=== PATIENT | female | born 1970 | race Caucasian/White ===

== ENCOUNTER 2016-09-14 19:43 | Emergency (ER) | payer OTHER ==
[~2016-09-14] VITALS: Ht 157.5 cm; Wt 90.9 kg
[~2016-09-14 19:43] MED LIST: ALBU8.5H4 IH; ATOR20TA PO; Aspirin PO; CARV3.12 PO; CEFU250T2 PO; CLOP75TA3 PO; FLUT12AE10 INHALATION; LISI-609 PO; Nystatin PO; TIOT18CA3 INHALATION
[2016-09-14 19:49] VITALS: BP 171/106; PULSE 112; RESP 18; O2SAT 98
[2016-09-14 20:11] VITALS: BP 131/71; PULSE 101; RESP 22; O2SAT 97
[2016-09-14 20:15] LABS: BASOPHILS % (AUTO) 0.6 % (0-3); Mean Corpuscular Hemoglobin 25.7 pg (27.0-35.0); Mean Corpuscular Volume 86.1 fL (81-100); NEUTROPHILS % (AUTO) 67.1 % (40-74); Platelet Count 323 bil/L (150-400)
--- NOTE | 2016-09-14 20:19 | DRSVH ---
PROCEDURE: X-RAY CHEST ONE VIEW, PORTABLE ([id number]) INDICATIONS: CHEST PAIN TECHNIQUE: One view of the chest was acquired. COMPARISON: [facility], , CHEST 1VW (PORTABLE), 02/24/2014, 10:38. [facility], , CHEST 2VW, 02/25/2014, 7:47. FINDINGS: Surgical changes and devices: None. Lungs and pleura: No pleural effusions or pneumothorax. Lungs are clear. Mediastinum: Mediastinal contours appear normal. Heart size is enlarged. Bones and chest wall: No suspicious bony lesions. Overlying soft tissues appear unremarkable. IMPRESSION: 1. Cardiomegaly redemonstrated. 2. No definite acute cardiopulmonary disease. Dictated by: Kiel Bautista M.D. on 09/14/2016 at 20:16 Approved by: Kiel Bautista M.D. on 09/14/2016 at 20:17
--- NOTE | 2016-09-14 20:27 | ED.REPORT ---
HPI-Chest Pain 40 and Over Date of Service Sep 14, 2016 ED Provider: Matt Lea DO 46 y/o female with a hx of CAD s/p stenting, HTN and COPD presents to the ED complaining of intermittent chest pain, onset last week. Pt reports that it radiates to under her arms and feels similar to "when you hold your breath and there's pressure above your neck". However, it is different from her sx of [place] in 2012. Associated sx include SOB, onset a couple of weeks and lower extremity swelling. Pt reports increased SOB and CP with walking. Pt denies fever, cough and diaphoresis. Pt has multiple prescription medications that she has not been taking due to cost. Nursing Notes Stated Complaint: HEART,TROUBLE BREATHING,HAS A STENT Chief Complaint: Chest Pain Nursing Notes Reviewed: Yes Allergies: Coded Allergies: No Known Allergies (Unverified Allergy, Unknown, 09/14/16) Scheduled ([Aspirin]) 81 MG TAB.CHEW 81 MG PO DAILY Aspirin Chew (Aspirin Chew) 81 Mg Chew 81 MG PO DAILY Atorvastatin (Lipitor) 20 Mg Tablet 40 MG PO HS Atorvastatin (Lipitor) 40 Mg Tablet 40 MG PO DAILY Carvedilol (Coreg) 3.125 Mg Tablet 3.125 MG PO BID Carvedilol (Coreg) 3.125 Mg Tablet 3.125 MG PO BID Clopidogrel Bisulfate (Plavix) 75 Mg Tablet 75 MG PO DAILY Clopidogrel Bisulfate (Plavix) 75 Mg Tablet 75 MG PO DAILY Fluticasone Propionate (Flovent HFA 220 mcg) 1 Puff Inha 2 PUFF INHALATION BID Lisinopril (Zestril) 5 Mg Tablet 5 MG PO HS Lisinopril (Lisinopril) 10 Mg Tablet 10 MG PO DAILY Tiotropium [place] (Spiriva) 1 Puff Inh.cap 1 PUFF INHALATION DAILY Scheduled PRN Albuterol HFA (Albuterol HFA) 8.5 Gm Hfa.aer.ad 1 PUFF IH Q4 PRN PRN For Wheezing General Time Seen by MD: 20:04 Chief Complaint Chest pain Sudden in Onset?: No Past Medical History Past Medical History CAD, [place] (2012), HTN, COPD Past Surgical History Stent placement Smoking History Current Every Day Smoker Ambulatory Status Independent Review of Systems Constitutional: Denies: Fever Respiratory: Reports: Shortness of breath, Denies: Non-productive cough Cardiovascular: Reports: Chest pain, Edema Skin: Denies Diaphoresis Complete sys rev & neg: except as marked. Physical Exam Initial Vital Signs Vital Signs (First) Date Time Temp Pulse Resp B/P Pulse Ox O2 Delivery O2 Flow Rate FiO2 09/14/16 19:49 37.0 112 18 171/106 98 Room Air Initial VS: Reviewed, Vital signs normal Head / Eyes: Atraumatic, Normocephalic, PERRL ENT: Mucous membranes moist, Conjunctiva normal, No scleral icterus Neck: Supple, Full range of motion Skin: Warm, Dry, No cyanosis Neurologic: Alert, Oriented, Nonfocal Psychiatric: Mood/affect normal, Behavior normal, Normal thought content General/Constitutional: Awake, Alert, No acute distress, Cooperative, Not toxic appearing Respiratory / Chest: Atraumatic, Breath sounds NL, Breath sounds = bilat, No respiratory distress, No rales, No rhonchi, No wheezing Cardiovascular: Heart rate NL, Regular rhythm, Heart sounds NL, No gallop, No murmurs, No rubs Abdomen: Atraumatic, Non-tender Lower Extremity / Pelvis / MS: Atraumatic, Full range of motion Lower extremity edema Upper Extremity / MS: Atraumatic, Full range of motion, No swelling Interpretation & Diagnostics Lab Results Interpretation Result Diagram: 09/14/16 2004 09/14/16 2004 Test 09/14/16 20:04 09/14/16 20:10 White Blood Count 8.1th/mm3 (3.8-10.1) Red Blood Count 4.04mil/mm3 (3.90-5.20) Hemoglobin 10.4g/dL (12.0-15.6) Hematocrit 34.8% (35.0-46.0) Mean Corpuscular Volume 86.1fL (81-100) Mean Corpuscular Hemoglobin 25.7pg (27.0-35.0) Mean Corpuscular Hemoglobin Concent 29.9% (32.0-37.0) Red Cell Distribution Width 15.7% (12.3-15.4) Platelet Count 323bil/L (150-400) Neutrophils (%) (Auto) 67.1% (40-74) Lymphocytes (%) (Auto) 19.1% (14-46) Monocytes (%) (Auto) 6.0% (4-12) Eosinophils (%) (Auto) 7.0% (0-5) Basophils (%) (Auto) 0.6% (0-3) D-Dimer 0.65mg/L FEU (<0.50) Sodium Level 141mEq/L (134-144) Potassium Level 4.9mEq/L (3.5-5.2) Chloride Level 104mEq/L (97-108) Carbon Dioxide Level 25mmol/L (18-29) Blood Urea Nitrogen 11mg/dL (6-24) Creatinine 0.95mg/dL (0.57-1.00) Estimat Glomerular Filtration Rate 91mL/min (>59) Glucose Level 129mg/dL (60-99) Calcium Level 9.6mg/dL (8.5-10.1) Magnesium Level 2.1mg/dL (1.6-2.6) Total Bilirubin 0.6mg/dL (0.0-1.2) Aspartate Amino Transf (AST/SGOT) 25U/L (0-50) Alanine Aminotransferase (ALT/SGPT) 20U/L (0-32) Alkaline Phosphatase 90U/L (25-150) Troponin T < 0.010ug/L (0.0-0.011) Pro-B-Type Natriuretic Peptide 1863pg/mL (0-249) Total Protein 6.5g/dL (6.4-8.4) Albumin 3.9g/dL (3.4-5.0) Hold [place] Top Tube Received (Received) Hold Urine Received (Received) General Lab Results Interp 1: Labs reviewed ECG Interpretation ECG Interpretation: SINUS TACHYCARDIA NON SPECIFIC ST CHANGES. Rate 100. Time: 20:09 Interpreted by: ED physician X-Ray Chest Interpretation Chest Xray Interpretation: IMPRESSION: 1. Cardiomegaly redemonstrated. 2. No definite acute cardiopulmonary disease. Dictated by: Kiel Bautista M.D. on 09/14/2016 at 20:16 Approved by: Kiel Bautista M.D. on 09/14/2016 at 20:17 View: Portable, 1 view Interpretation / Wet Read by: Interpret - Radiologist CT Chest Interpretation IMPRESSION: 1. No evidence of pulmonary embolism. 2. Cardiomegaly with a small pericardial effusion. 3. Moderate-sized hiatal hernia. 4. Heterogeneous groundglass opacities with mild septal thickening primarily in the lung bases suggestive of mild pulmonary edema. Dictated by: Kiel Bautista M.D. on 09/14/2016 at 21:50 Approved by: Kiel Bautista M.D. on 09/14/2016 at 21:56 ADDENDUM: Mildly enlarged mediastinal lymph nodes are nonspecific and may be reactive. However, the differential includes metastatic disease. Recommend correlation clinically and followup to demonstrate stability in 3-6 months if clinically indicated. Dictated by: Kiel Bautista M.D. on 09/14/2016 at 22:12 Approved by: Kiel Bautsita M.D. on 09/14/2016 at 22:13 Study type: CT pulm angiogram Interpretation / Wet Read by: Interpret - Radiologist Re-Eval/Medical Decision Med Decision/Clinical Course Does not seem to be acute coronary syndrome, may be mild congestive heart failure, her vital signs are okay, she has some tachycardia which has resolved after resuming her beta mary, her blood pressure is still mildly elevated, she is not hypoxic. She is ambulatory with a brisk gait without symptoms. She would prefer to go home after our discussion. I strongly encouraged her to resume her previously prescribed medications. A one-month supply of each has been given. Additionally she is encouraged to call cardiology for seeing in the morning as well as a primary care doctor for close outpatient follow-up. Discussed that she will need echocardiogram and further evaluation with cardiology. Return and follow-up precautions given. Source of Hx: Old records Time of Eval: 22:21 Re-Evaluation/Progress Note: Updated pt of labs, ECG and imaging results. Discussed plan for discharge and follow up. Informed her that she needs to take her medications as directed. All questions addressed. Counseled Regarding: Diagnosis, Lab results, Need for follow-up, When/why to return to ED Discharge & Departure Primary Impression: CHF (congestive heart failure) Congestive heart failure type: unspecified congestive heart failure type Congestive heart failure chronicity: unspecified congestive heart failure chronicity Qualified Code: I50.9 - Heart failure, unspecified Disposition: Home Discharge Condition All VS Reviewed: Yes Condition: Improved Patient Instructions: Congestive Heart Failure (ED) Additional Instructions: Call cardiology first thing tomorrow morning for urgent follow up. Start taking Lasix as directed for CHF. Resume your other prescribed medications. You should also schedule a follow up with a primary care provider. Return to the ER for severe pain, shortness of breath or any other new or concerning symptoms. Referrals: Jori Vazquez DO (PCP) Torie Pate MD [facility] Scribe Attestation Portions of this note were transcribed by Jud Park and Cheryl Whitaker I, (Dr. Shonna Barnes) personally performed the history, physical exam and medical decision- making; I reviewed and confirmed the accuracy of the information in the transcribed note. Signed by: Jud Park. Grant, 09/14/2016, 7483 copies to: Jori Vazquez DO; Torie Pate MD; [facility] Matt Lea DO Sep 14, 2016 20:27 Cheryl Zuñiga Sep 14, 2016 20:28 Jud Park Sep 14, 2016 22:30
[2016-09-14] MEDS ORDERED: Furosemide 10 mg/mL 2 mL Inj IVPUSH ONE (20:30)
[2016-09-14 20:47] LABS: Magnesium 2.1 mg/dL (1.6-2.6)
[2016-09-14 20:51] LABS: TROPONIN T < 0.010 ug/L (0.0-0.011)
[2016-09-14] MEDS ORDERED: Furosemide 10 mg/mL 4 mL Inj IVPUSH ONE (21:20)
[2016-09-14 21:31] VITALS: BP 134/84; PULSE 102; RESP 16; O2SAT 96
--- NOTE | 2016-09-14 21:58 | DRSVH ---
PROCEDURE: CT ANGIO CHEST PULMONARY EMBOLISM ([id number]) INDICATIONS: dyspnea, elevated ddimer TECHNIQUE: After the administration of intravenous contrast, 2 mm thick sections acquired from the pulmonary api beth to the posterior costophrenic angles. 3-dimensional maximum intensity projection (MIP) coronal a nd sagittal reformats were then acquired through the thorax. For radiation dose reduction, the follo wing was used: automated exposure control, adjustment of mA and/or kV according to patient size. COMPARISON: [facility], CR, XR CHEST 1VW (PORTABLE), 09/14/2016, 19:51. FINDINGS: Image quality: Excellent. Pulmonary arteries: Pulmonary arteries are normal in size, and demonstrate no intraluminal filling d efects to suggest central pulmonary embolism. Lungs and pleura: There are heterogeneous groundglass opacities and mild septal thickening in the sundeep ngs with a basilar predominance suggesting mild pulmonary edema. No acute consolidation. No pleural effusions or pneumothorax. Central and peripheral airways are patent. Mediastinum: Heart size is mildly enlarged. There is a small pericardial effusion. Thoracic aorta is normal in caliber and enhancement. There multiple mildly enlarged mediastinal lymph nodes includi ng a off premise service representative azygoesophageal of blood measuring up to 1.3 cm. There are also right paratrache al lymph nodes noted measuring up to approximately 1 cm. Esophagus is normal in caliber, with a mode rate-sized hiatal hernia. Bones and chest wall: No suspicious bony lesions. Ribs and thoracic spine appear intact throughout. Thyroid gland demonstrates a small indistinct left-sided nodule.. No axillary or supraclavicular a denopathy. Abdomen: Visualized upper abdominal solid organs appear normal in the early arterial phase of enhanc ement. IMPRESSION: 1. No evidence of pulmonary embolism. 2. Cardiomegaly with a small pericardial effusion. 3. Moderate-sized hiatal hernia. 4. Heterogeneous groundglass opacities with mild septal thickening primarily in the lung bases sugge stive of mild pulmonary edema. Dictated by: Kiel Bautista M.D. on 09/14/2016 at 21:50 Approved by: Kiel Bautista M.D. on 09/14/2016 at 21:56
[2016-09-14 22:01] VITALS: BP 162/95; PULSE 100; RESP 15; O2SAT 99
[2016-09-14] MEDS ORDERED: CARV3.12 PO (22:33)
[2016-09-14] MEDS ORDERED: LISI10TA PO (22:33)
[2016-09-14] MEDS ORDERED: LIP40 PO (22:33)
[2016-09-14] MEDS ORDERED: CLOP75TA3 PO (22:33)
[2016-09-14] MEDS ORDERED: ASPI81TA3 PO (22:33)
[2016-09-14 22:37] VITALS: BP 162/96; PULSE 95; RESP 20; O2SAT 96
== END 2016-09-14 22:38 | disposition home or self-care (01) ==
LOC: SED 19:43
DX: I11.0 Hypertensive heart disease with heart failure (principal); I25.10 Atherosclerotic heart disease of native coronary artery without angina pectoris; J44.9 Chronic obstructive pulmonary disease, unspecified; Z79.82 Long term (current) use of aspirin; F17.200 Nicotine dependence, unspecified, uncomplicated; Z95.5 Presence of coronary angioplasty implant and graft
CPT/HCPCS: 36415; 71010; 71275; 80053; 83735; 83880; 84484; 85025; 85378; 93005; 96374; 99285; J1940; Q9967

== ENCOUNTER 2017-02-11 16:54 | Inpatient (IN) | payer OTHER ==
[~2017-02-11] VITALS: Ht 157.5 cm; Wt 83.1 kg
[2017-02-11] VITALS (7 sets, daily range): BP systolic 133–168; BP diastolic 72–121; PULSE 85–106; RESP 18–24; O2SAT 95–97
[~2017-02-11 16:54] MED LIST changes: +ASPI81TA3 PO; -CEFU250T2 PO; +LIP40 PO; +LISI10TA PO; -Nystatin PO
--- NOTE | 2017-02-11 17:34 | DRSVH ---
PROCEDURE: X-RAY CHEST, TWO VIEWS ([id number]) INDICATIONS: shortness of breath TECHNIQUE: 2 views of the chest were acquired. COMPARISON: [facility], CR, CHEST 2VW, 02/25/2014, 7:47. [facility], CR, XR CHEST 1VW (PORTABLE), 09/14/2016, 19:51. FINDINGS: Surgical changes and devices: None. Lungs and pleura: No pleural effusions or pneumothorax. Lungs are clear. Mediastinum: Mediastinal contours are normal. Heart size is enlarged, but stable compared to prior examination. Bones and chest wall: No suspicious bony abnormalities. Soft tissues appear unremarkable. IMPRESSION: No acute cardiopulmonary disease process. Cardiomegaly. Dictated by: Vale Lambert MD, PhD on 02/11/2017 at 17:32 Approved by: Vale Lambert MD, PhD on 02/11/2017 at 17:32
[2017-02-11 17:53] LABS: BASOPHILS % (AUTO) 0.7 % (0-3); EOSINOPHILS % (AUTO) 5.6 % (0-5); MONOCYTES % (AUTO) 5.1 % (4-12); Mean Corpuscular Hemoglobin 27.1 pg (27.0-35.0); Mean Corpuscular Volume 85.5 fL (81-100); NEUTROPHILS % (AUTO) 68.4 % (40-74); Platelet Count 290 bil/L (150-400)
[2017-02-11 18:22] LABS: TROPONIN T < 0.010 ug/L (0.0-0.011)
--- NOTE | 2017-02-11 19:04 | ED.REPORT ---
HPI-Dyspnea / Wheezing Date of Service Feb 11, 2017 ED Provider: Troy Colby MD Patient is a 47 year old female with a history of CAD, CHF, COPD and hypertension who presents to the ED complaining of increasing dyspnea with exertion that has been ongoing for the past few months. Associated symptoms include diaphoresis with minimal exertion, increased leg swelling, shortness of breath with no exertion and feeling as though the "veins in her neck are hard" with neck pressure, when she walks. She denies chest pain but states that when she lies flat she begins to cough and has a heaviness on her chest. Patient reports that she has to stop and take big breaths after only walking about 15 steps. She states that her symptoms feel very different than her past heart attack. The patient has not been taking any of her medications for the past week and continues to smoke. Patient has a history of a STEMI in 2013 with a stent to the right coronary artery. flower shop laborer/designer showed minor disease in the anterior circumflex artery and acute cardiogenic shock at the time of [place] with 45-50% ejection fracture in inferolateral hypokinesis. Nursing Notes Stated Complaint: BREATHING Chief Complaint: Respiratory Distress Nursing Notes Reviewed: Yes Allergies: Coded Allergies: No Known Allergies (Verified Allergy, Unknown, 02/11/17) Scheduled Aspirin (Aspirin) 81 Mg Tablet 81 MG PO BID Atorvastatin (Lipitor) 20 Mg Tablet 40 MG PO HS Carvedilol (Carvedilol) 12.5 Mg Tablet 12.5 MG PO BID Clopidogrel Bisulfate (Plavix) 75 Mg Tablet 75 MG PO DAILY Fluticasone Propionate (Flovent HFA 220 mcg) 1 Puff Inha 2 PUFF INHALATION BID Lisinopril (Lisinopril) 10 Mg Tablet 10 MG PO DAILY Tiotropium [place] (Spiriva) 1 Puff Inh.cap 1 PUFF INHALATION DAILY Scheduled PRN Albuterol HFA (Proair HFA) 8.5 Gm Hfa.aer.ad 2 PUFFS INHALATION Q4H PRN PRN For Shortness of Breath General Time Seen by MD: 18:41 Chief Complaint Shortness of breath Hx Obtained From: Patient Arrived By: Walk-in Sudden in Onset?: No Onset Occurred: More than a week ago... 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 Physical Exam Initial Vital Signs Vital Signs (First) Date Time Temp Pulse Resp B/P Pulse Ox O2 Delivery O2 Flow Rate FiO2 02/11/17 16:59 36.7 101 18 159/112 96 Room Air Initial VS: Reviewed General/Constitutional: Awake, Alert NECK: JVD present Respiratory / Chest: Atraumatic, No respiratory distress scattered wheezes bibasilar crackles CARDIO: borderline tachycardia S3 gallop hypertensive Abdomen: Atraumatic, Soft, Non-tender no hepatojugular reflex Lower Extremity / Pelvis / MS: Atraumatic, Full range of motion trace bilateral edema without pitting Skin: No rash, Warm, Dry Neurologic: Oriented X3, Speech NL Head / Eyes: Atraumatic, Normocephalic Psychiatric: Affect NL, Mood NL Interpretation & Diagnostics Lab Results Interpretation Result Diagram: 02/11/17 1735 02/11/17 1735 Test 02/11/17 17:35 White Blood Count 8.9th/mm3 (3.8-10.1) Red Blood Count 4.28mil/mm3 (3.90-5.20) Hemoglobin 11.6g/dL (12.0-15.6) Hematocrit 36.6% (35.0-46.0) Mean Corpuscular Volume 85.5fL (81-100) Mean Corpuscular Hemoglobin 27.1pg (27.0-35.0) Mean Corpuscular Hemoglobin Concent 31.7% (32.0-37.0) Red Cell Distribution Width 16.5% (12.3-15.4) Platelet Count 290bil/L (150-400) Neutrophils (%) (Auto) 68.4% (40-74) Lymphocytes (%) (Auto) 20.1% (14-46) Monocytes (%) (Auto) 5.1% (4-12) Eosinophils (%) (Auto) 5.6% (0-5) Basophils (%) (Auto) 0.7% (0-3) Sodium Level 137mEq/L (134-144) Potassium Level 4.3mEq/L (3.5-5.2) Chloride Level 102mEq/L (97-108) Carbon Dioxide Level 20mmol/L (18-29) Blood Urea Nitrogen 18mg/dL (6-24) Creatinine 0.99mg/dL (0.57-1.00) Estimat Glomerular Filtration Rate 86mL/min (>59) Glucose Level 104mg/dL (60-99) Calcium Level 8.9mg/dL (8.5-10.1) Total Bilirubin 1.2mg/dL (0.0-1.2) Aspartate Amino Transf (AST/SGOT) 36U/L (0-50) Alanine Aminotransferase (ALT/SGPT) 24U/L (0-32) Alkaline Phosphatase 113U/L (25-150) Troponin T < 0.010ug/L (0.0-0.011) Pro-B-Type Natriuretic Peptide 2402pg/mL (0-249) Total Protein 6.7g/dL (6.4-8.4) Albumin 4.0g/dL (3.4-5.0) ECG Interpretation ECG Interpretation: sinus tachycardia with LVH and secondary repolarization activity Interpreted by: ED physician X-Ray Chest Interpretation Chest Xray Interpretation: IMPRESSION: No acute cardiopulmonary disease process. Cardiomegaly. Dictated by: Vale Lambert MD, PhD on 02/11/2017 at 17:32 Approved by: Vale Lambert MD, PhD on 02/11/2017 at 17:32 Interpretation / Wet Read by: Wet read ED physician (increased intersitial markings), Interpret - Radiologist Re-Eval/Medical Decision Med Decision/Clinical Course 47-year-old female with known coronary disease and continues to smoke and is noncompliant with her medications. Presents today with recent onset of exertional dyspnea and pressure sensation in her neck. Also appears to have congestive heart failure. Does not have ischemic changes on her EKG and initial troponin is negative although BNP is elevated compared to the last value. Presentation is consistent with unstable angina. Was given aspirin, lisinopril, Plavix and Nitropaste in the emergency department. Also gave her Lasix 20 mg IV. Will be admitted to the hospitalist service for formal rule out and hopefully further evaluation of her congestive failure as well as a treadmill. Re-Evaluation/Progress : Time of Eval: 19:14 Re-Evaluation/Progress Note: Discussed results and plan for admit. Patient understands and agrees to plan. All questions were addressed. 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, Agrees with plan, Accepts admit Counseled Regarding: Diagnosis, Lab results, Need for admission Discharge & Departure Impression: Primary Impression: CHF (congestive heart failure) Congestive heart failure type: unspecified congestive heart failure type Congestive heart failure chronicity: unspecified congestive heart failure chronicity Qualified Code: I50.9 - Heart failure, unspecified Additional Impression: Unstable angina Disposition: ADMITTED TO HOSPITAL Discharge Condition All VS Reviewed: Yes Condition: Stable Referrals: Jori Vazquez DO (PCP) Torie Pate MD Attestation Portions of this note were transcribed by Amee Márquez. I, Dr. Colby personally performed the history, physical exam and medical decision-making; I reviewed and confirmed the accuracy of the information in the transcribed note. Signed by: Grant Sepulveda, 02/11/17 copies to: Jori Vazquez Donald L MD Feb 11, 2017 19:04 Betsy Márquez Feb 11, 2017 19:11
[2017-02-11] MEDS ORDERED: Furosemide 10 mg/mL 2 mL Inj IVPUSH ONE (19:05)
[2017-02-11] MEDS ORDERED: Nitroglycerin 2% 1 Gm Ointment TOPICAL SCH (19:05)
[2017-02-11] MEDS ORDERED: ALBU8.5H2 INHALATION (19:48)
[2017-02-11] MEDS ORDERED: ASPI-973 PO (19:48)
[2017-02-11] MEDS ORDERED: CARV12.52 PO (19:48)
[2017-02-11] MEDS ORDERED: SERT50TA9 PO (19:48)
[2017-02-11] MEDS ORDERED: Alum-Mag Hydrox-Simeth 30 mL Suspension PO PRN ×2 (19:50→20:15)
[2017-02-11] MEDS ORDERED: Ondansetron 2 mg/mL 2 mL Inj IVPUSH PRN ×2 (19:50→20:15)
[2017-02-11] MEDS ORDERED: Polyethylene Glycol (PEG) 17 Gm Powder PO PRN (20:15)
--- NOTE | 2017-02-11 20:25 | NUR ---
Admission Note Pt admitted to [facility] from ER on stretcher at 2012, alert and orientedx3, denies any pain, SOB/N/V/Fever/chills. BP 167/120, HR106, RR18, SPO2 95% on RA, will given BP meds ordered. Lung sounds clear, HR regular, Tele applied, SR 90s-low 100s per awake overnight monitor. Abdomen soft, non tender, BT active, 1+ pitting edema at bilateral LEs, left slightly>right. Pt oriented to call light, plan of ECHO tomorrow. Care ongoing.
[2017-02-11] MEDS ORDERED: Albuterol 1.25 mg/3 mL Inhalation Solution NEB PRN (20:40)
--- NOTE | 2017-02-11 20:47 | PCM.HPMED ---
Subjective Date of Service Feb 11, 2017 Primary Provider: Admitting Physician: Elizabeth Brown DO Primary Care Physician: Jori Vazquez DO Attending Physician: Elizabeth Brown DO Chief Complaint: Dyspnea, orthopnea, chest discomfort History of Present Illness: Patient is a 47-year-old female with a history of CAD with history of STEMI and drug-eluting stent to the RCA in 2013, systolic CHF, COPD, hypertension, and hyperlipidemia who presents with progressive dyspnea over the past 2 months, orthopnea, edema, and chest discomfort. She states her symptoms started 2 months ago as dyspnea on exertion and began to progress to the point that she became dyspneic at rest. She reports a dry cough, lower extremity edema, a 25- 30 pound weight gain over the last 2 months, and a vague aching substernal chest pain radiating to the left axilla. She reports her chest pain occurs with exertion and improves with rest. The pain resolves quickly as soon as she rests. He states that her insurance does not cover medications and she has been unable to afford any medications, so she has not been taking any of the medications on her list. She reports methamphetamine use and states that she took some meth orally 3 days ago. In the ED, HR 95, RR 21, BP 154/102, O2 95 on room air. Hgb 11.6, CMP normal, troponin < 0.01, proBNP 2402. Chest x-ray showed cardiomegaly with pulmonary redistribution. EKG showed left axis deviation with nonspecific ST changes in the lateral leads. Review of Systems: Comprehensive review of systems conducted and was negative except for the pertinent positives listed above. Allergies Coded Allergies: No Known Allergies (Verified Allergy, Unknown, 02/11/17) Home Medications Albuterol inhaler 2 puff q4h PRN Aspirin 81 mg BID Atorvastatin 40 mg qhs Carvedilol 12.5 mg BID Plavix 75 mg daily Flovent inhaler 2 puff BID Lisinopril 10 mg daily Spiriva 1 puff daily PMH Acute inferior ST elevation myocardial infarction s/p drug-eluting stent to the right coronary artery in 2013 Systolic congestive heart failure - Echo (02/24/14): LVEF 45-50% with inferolateral hypokinesis. Coronary artery disease. COPD Hypertension Hyperlipidemia Obesity Diabetes mellitus type II, diet-controlled. HA1c was 5.7 on 02/24/14. Methamphetamine use Chronic back pain. Nicotine dependence Surgical History Drug eluting stent to the RCA in 2013 Family History Mother with diabetes mellitus Father: Coronary artery disease with stents Grandmother: Lung cancer with a history of smoking Aunt: Lymphoma Social History Hx Alcohol Use: No Hx Substance Use: Yes (eats methamphetamphine, last use 3 days ago) Hx Tobacco Use: Yes (1/2 PPD for 28 years) Smoking Status: Current Every Day Smoker (1/3 pack per day) Exam Vital Signs Vital Sign - Last Date Time Temp Pulse Resp B/P Pulse Ox O2 Delivery O2 Flow Rate FiO2 02/11/17 20:02 36.7 95 21 154/102 95 Room Air Exam General: Alert, Oriented X3, Cooperative, No acute distress Head: Normocephalic, atraumatic. External ears normal. Eyes: PERRLA, EOMI. Anicteric sclerae. Mouth: Mouth normal, Mucous membranes moist/pink Neck: Neck supple with full range of motion. JVD noted Chest& Lungs: Mild diffuse crackles bilaterally Cardiovascular: Regular rate/rhythm, Normal S1, Normal S2, No murmurs/rubs/ gallops Abdomen: Non-tender, Non-distended, No masses, Normoactive bowel tones, Soft Musculoskeletal: Normal range of motion Extremities: Mild bilateral lower extremity edema Neurological: Grossly neurologically intact. Normal speech Lab and Diagnostics Result Diagram: 02/11/17 1735 02/11/17 1735 Assessment & Plan Patient is a 47-year-old female with a history of CAD with history of STEMI and drug-eluting stent to the RCA in 2013, systolic CHF, COPD, hypertension, and hyperlipidemia who presents with progressive dyspnea over the past 2 months, orthopnea, edema, and chest discomfort. Admitted for acute systolic CHF exacerbation and unstable angina. Acute systolic CHF exacerbation. Present on admission. 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 Patient has a history of CAD with STEMI and stents and has been noncompliant with cardiac meds since her hospitalization and catheterization in 2013. Takes meth orally, last used 3 days ago. ProBNP 2402. Chest x-ray showed cardiomegaly and vascular redistribution. Patient appears fluid overloaded. Medical noncompliance due to financial difficulties is likely a large factor. - Echo in AM - Patient received Lasix 20 mg IV - Daily standing weights - Strict I/O - Lisinopril 5 mg daily - Restart home carvedilol before discharge - farm forestry and garden workers consult for financial analysis manager for cardiac medications - Consult cardiology in AM Stable angina. - Patient reports frequent cardiac chest pain, worse with exertion and better at rest. Denies chest pain at this time. History of CAD with stents. EKG showed nonspecific ST changes. Troponin negative 1. - Restart home aspirin and Plavix - Atorvastatin 40 mg daily at bedtime - Monitor on telemetry - Trend troponin 3 - Sublingual nitroglycerin PRN Methamphetamine abuse. - Possibly contributing to CHF exacerbation - Tox screen ordered - farm forestry and garden workers consult Hypertension - Patient presented significantly hypertensive with BP 167/120. Improved to 130s /90s with Lasix. - Lisinopril 5 mg daily restarted - Continue to monitor COPD, chronic. - Albuterol nebs q6h PRN Hyperlipidemia - Lipid panel in AM - Atorvastatin 40 mg qhs Diabetes mellitus type II, diet-controlled. - Blood glucose 104 on admission. HA1c was 5.7 on 02/24/14. - Diabetic heart healthy diet Nicotine dependence - Nicotine patch ordered - Bowel regimen as needed - Antiemetic as needed Patient is admitted under inpatient status with expected length of stay greater than 2 midnights due to severity of presenting symptoms, risk of adverse event, and complexity of treatment plan. Attending Statement The patient was seen and examined together with house staff on 02/11/2017 and I agree with the history, exam and plan as outlined in the note above. Sharif Leon Feb 11, 2017 20:47 Elizabeth Brown DO Feb 12, 2017 02:33
--- NOTE | 2017-02-11 21:34 | NUR ---
Admission Admission assessment and screening completed.
[2017-02-12] VITALS (8 sets, daily range): BP systolic 112–146; BP diastolic 71–102; PULSE 73–104; RESP 16–18; O2SAT 92–97
[2017-02-12] MEDS: Heparin 5,000 Unit/mL Inj SUBQ SCH ×3 (00:36→17:47)
[2017-02-12 01:30] LABS: APPEARANCE,URINE CLEAR (CLEAR,HAZY); COLOR,URINE STRAW (YELLOW); OCCULT BLOOD,URINE NEGATIVE (NEGATIVE); PH,URINE 6.5 (5.0-8.0); UROBILINOGEN,URINE NORMAL (NORMAL)
--- NOTE | 2017-02-12 03:22 | NUR ---
V-tach Tele report at 0235: 2 runs of V-tach: 8 beats, 6 beat. Asymptomatic, pt sleeping. Dr. Reyes paged and aware.
[2017-02-12 06:36] LABS: BASOPHILS % (AUTO) 0.6 % (0-3); EOSINOPHILS % (AUTO) 6.6 % (0-5); MONOCYTES % (AUTO) 5.3 % (4-12); Mean Corpuscular Hemoglobin 26.7 pg (27.0-35.0); Mean Corpuscular Volume 85.5 fL (81-100); NEUTROPHILS % (AUTO) 67.4 % (40-74); Platelet Count 282 bil/L (150-400)
--- NOTE | 2017-02-12 12:12 | NUR ---
Social Work: Initial Assessment / Discharge Data: See initial assessment. Patient is a 47 year old female who was admitted on 02/11/17 for unstable angina & CHF per H&P. Patient's insurance is [facility]. Patient's PCP is Jori Vazquez DO. EMR reviewed. SW met with patient to discuss discharge planning. SW role explained. Patient lives alone in [place]. Patient considers her mother to be her main support person. Patient denies having a DPOA or AD and has declined SW offer for resources at this time. Patient confirms that she is I at baseline with performing all ADLs and care needs. Patient denies having a hx of home health services or SNF. Patient denies having nursing home care insurance or VA benefits. Upon discharge, patient states that her mother will transport her home. SW provided patient with a discharge planning checklist and encouraged to call with any questions or concerns. Phone number provided. Patient was also discussed in morning rounds. Patient has been deemed medically stable and will discharge home today. During rounds, MD inquired about patient's ability to obtain prescription medications. SW visited patient to discuss further. SW was informed that patient has a $7,000.00 spend down that she has to pay in order for insurance to cover the costs of insurance. CARLENE met with MD and updated on situation. MD provided patient with a list of discharge medications. SW will work to obtain medication assistance for patient. Patient has no additional needs at this time. Assessment: Patient will discharge home. Plan: Patient will discharge home today. Transportation will be provided by mother who is now at bedside. SW will work to obtain coupons for patient's medications. Patient has no additional needs at this time. MESERET Tamayo Addendum: 02/12/17 at 1242 by JUNIOR TAYLOR Amended: Links added. Addendum: 02/12/17 at 1300 by JUNIOR BRYANT SS SW researched prescribed medications and 3 out of the 4 medications are on the $4.00 list at [facility]. CARLENE was able to find a prescription assistance program for the 4th medication. CARLENE updated MD and mother of patient due to patient being asleep. CARLENE provided patient's mother with the application for patient to complete for the medication assistance program and provided instructions for patient to get medications filled at [facility] instead of [facility]. Mother expressed understanding and agreement. Patient has no additional needs at this time. MESERET Tamayo
--- NOTE | 2017-02-12 12:20 | DRSVH ---
[facility] [address] [place] [address] Echocardiogram Report Name: BECKY HANSON MStudy Date : 02/12/2017 Height: 62 in Hospital Exam Location: [facility] Weight: 18 3 lb Gender: Female BSA: 1.8 m2 : 1970 Age: 47 yrs BP: 143/85 mmHg Reason For Study: CHF Ordering Physician: RYANIST [facility] Performed By: Lexis Veliz Referring Physician: Dre Sosa Interpretation Summary The left ventricle is severely dilated and left ventricular systolic function is severely reduced with the ejection fraction estimated to be 20-25% with a mild dyssynchronous contraction pattern, consistent with a conduction abnormality, and severe global hypokinesis that is worse in the inferior and posterior segments which is unchanged from the previous study but overall left ventricular function has markedly decreased and size is significantly larger compared to the previous study. Assessment of diastolic parameters suggests a pseudonormalization pattern, consistent with elevated filling pressures, likely significantly higher compared to the previous study. The right ventricle is borderline dilated and right ventricular systolic function is moderately reduced. The right ventricle is larger and less dynamic compared to the previous study. The right ventricular systolic pressure is estimated at least 48 mmHg assuming a right atrial pressure of 3 mm Hg, and is likely significantly higher compared to the previous study. The left atrium is severely dilated and significantly increased in size since the prior echo exam. There is moderate mitral regurgitation and mild to moderate tricuspid regurgitation. Both are worse compared to the previous study. Procedure: A two-dimensional transthoracic echocardiogram with color flow and Doppler was performed. The study quality was technically good. Comparison is made with the echocardiogram of 02/24/17. The patient was in normal sinus rhythm during the exam. The patient had occasional PVCs during the exam. Left Ventricle: The left ventricle is severely dilated. This is significantly larger compared to the previous study. There is normal left ventricular wall thickness. Left ventricular systolic function is severely reduced. The ejection fraction is estimated to be 20-25%. Compared to the prior exam, left ventricular function is markedly decreased. There is severe global hypokinesis of the left ventricle. There is a mild dyssynchronous contraction pattern, consistent with a conduction abnormality. This is worse in the inferior and posterior segments which is unchanged from the previous study. Assessment of diastolic parameters suggests a pseudonormalization pattern, consistent with elevated filling pressures. This is likely significantly higher compared to the previous study. Right Ventricle: The right ventricle is borderline dilated. Right ventricular systolic function is moderately reduced. This is larger and less dynamic compared to the previous study. Atria: The left atrium is severely dilated. The left atrium has significantly increased in size since the prior echo exam. Right atrial size is normal. There is no Doppler evidence for an interatrial shunt. Mitral Valve: The mitral valve is normal. There is moderate mitral regurgitation. This is worse compared to the previous study. Aortic Valve: The aortic valve is trileaflet. The aortic valve is mildly calcified. The aortic valve opens well. There is trace aortic regurgitation. Tricuspid Valve: The tricuspid valve is normal. There is mild to moderate tricuspid regurgitation. Compared to the prior echo exam, there has been an increase in TR severity. The right ventricular systolic pressure is estimated at least 48 mmHg assuming a right atrial pressure of 3 mm Hg. This is likely significantly higher compared to the previous study. Pulmonic Valve: The pulmonic valve leaflets are thin and pliable; valve motion is normal. There is trace pulmonic regurgitation. Great Vessels: The aortic root is normal size. The ascending aorta is normal in size. The aortic arch is normal in size. The pulmonary artery is not well visualized, but is probably normal size. The IVC is of normal diameter and collapses greater than 50% with a sniff. This suggests a low right atrial pressure of 3 mm Hg. Pericardium/ Pleura There is no pericardial effusion. There is no pleural effusion. MMode/2D Measurements & Calculations LVIDd: 7.1 cm LVIDs: 6.9 cm LA A2 area: 25.6 cm FS: 2.9 % LA A4 area: 26.3 cm EPSS: 2.7 cm LA length (vol): 5.7 cm IVSd: 0.98 cm LA vol: 99.8 ml LVPWd: 0.97 cm LA vol index: 54.2 ml/m IVC diam: 2.0 cm RA long axis: 4.7 cm LVOT diam: 2.3 cm RA area: 15.7 cm AoV Openin.7 cm RA vol: 44.6 ml Ao root diam: 3.5 cm RA : 24.2 ml/m2 asc Aorta Diam: 3.4 cm Ao Arch Diam (Prox Trans): 3.0 cm EDV(MOD-sp2): 284.7 ml LV baires. diameter/BSA (cm/m^2): 3.9 ESV(MOD-sp2): 208.7 ml EF(MOD-sp2): 26.7 % LV sys. diameter/BSA (cm/m^2): 3.8 RVD1 (basal): 3.9 cm RVD2 (mid): 2.7 cm TAPSE: 1.1 cm Doppler Measurements & Calculations Ao V2 max: 133.8 cm/sec MV E max benjamín: 110.9 cm/sec Ao max P.2 mmHg MV A max benjamín: 72.1 cm/sec Ao mean P.1 mmHg MV P1/2t: 29.3 msec LVOT Max Benjamín: 82.4 cm/sec MR ERO: 0.07 cm2 NASIR(I,D): 2.4 cm sev ratio: 0.56 MV E/A: 1.5 TR max benjamín: 333.5 cm/sec Med Peak E' Benjamín: 2.9 cm/sec TR max P.5 mmHg E/E' med: 38.4 PA V2 max: 61.3 cm/sec Lat Peak E' Benjamín: 3.1 cm/sec PA mean P.84 mmHg E/E' lat: 36.3 E/e' average: 37.3 MV dec time: 0.10 sec MV P1/2t max benjamín: 111.8 cm/sec MVA(P1/2t): 7.5 cm2 Ao V2 mean: 93.8 cm/sec LV V1 max P.7 mmHg Ao V2 VTI: 20.9 cm LV V1 VTI: 11.7 cm NASIR(V,D): 2.6 cm2 PA V2 mean: 43.9 cm/sec MR flow rate: 36.4 cm3/sec PA pr(Accel): 46.9 mmHg MR PISA radius: 0.57 cm NASIR indexed to BSA (cm^2/m^2): 1.3 Reading Physician:12:19 PM
--- NOTE | 2017-02-12 14:09 | PCM.PNMED ---
Subjective Date of Service Feb 12, 2017 Subjective Shortness of breath improved but it has been most prominent with exertion which she has not been doing here in the hospital. She denies recent methamphetamine use (but her urine drug screen is positive) Exam Vital Signs Vital Sign - Last Date Time Temp Pulse Resp B/P Pulse Ox O2 Delivery O2 Flow Rate FiO2 02/12/17 10:29 92 02/12/17 09:41 36.5 16 146/102 97 Room Air Intake and Output 02/11/17 02/11/17 02/12/17 Cumulative From/Thru 15:00 23:00 07:00 02/11/17 16:59 - 02/12/17 05:31 Intake Total 600 ml 600 ml Output Total 700 ml 700 ml Balance -100 ml -100 ml Intake Oral 600 ml 600 ml Output Urine Total 700 ml 700 ml Exam General: Alert and oriented, no acute distress Heart: Regular Lungs: Clear Abdomen: Soft, non-tender Extremities: No pedal edema IVs and Medications Medications Reviewed: Medications were reviewed in detail Lab and Diagnostics Result Diagram: 02/12/17 0535 02/12/17 0535 Assessment & Plan Patient is a 47-year-old female with a history of CAD with history of STEMI and drug-eluting stent to the RCA in 2013, systolic CHF, COPD, hypertension, and hyperlipidemia who presents with progressive dyspnea over the past 2 months, orthopnea, edema, and chest discomfort. Admitted for acute systolic CHF exacerbation and possible unstable angina. Acute on Chronic systolic CHF exacerbation. Present on admission. 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 Patient has a history of CAD with STEMI and stents and has been noncompliant with cardiac meds since her hospitalization and catheterization in 2013. Takes meth orally, last used 3 days ago. ProBNP 2402. Chest x-ray showed cardiomegaly and vascular redistribution. Patient appears fluid overloaded. Medical noncompliance due to financial difficulties is likely a large factor. - at cardiac cath in 2013: Left ventricular ejection fraction of 55% with inferior wall akinetic. - Echo today: The left ventricle is severely dilated and left ventricular systolic function is severely reduced with the ejection fraction estimated to be 20-25% with a mild dyssynchronous contraction pattern, consistent with a conduction abnormality, and severe global hypokinesis that is worse in the inferior and posterior segments which is unchanged from the previous study but overall left ventricular function has markedly decreased and size is significantly larger compared to the previous study. - Discussed these results with her and her mom, emphasized the seriousness of these results and told her that if she does not take her medications and follow- up with her physicians her chances of living 5 years are low - Also stressed with her the importance of stopping them at amphetamine use butshe denies recent use (however drug screen is positive) - Patient received Lasix 20 mg IV and will now start her on Lasix 40 mg by mouth daily - Daily standing weights and Strict I/O - Was started on Lisinopril 5 mg daily but systolic blood pressure mostly in the 140s although up to 168/120 last evening, will increase to 10 mg daily - Restart home carvedilol 12.5 mg twice a day - warehouse worker consult for director of financial planning for cardiac medications, found that she can get the lisinopril, carvedilol and furosemide at [facility] for $4 each. - Nitroglycerin is not available for low myers at [facility] but administrator social welfare found an assistance program from the [employer] and will give patient information on this -Discussed patient's echo results and her history with cardiology on the phone, Dr. Mcqueen did not feel further evaluation needed at this time, most important thing is for her to resume medications and stay compliant with this Stable angina. - Patient reports frequent cardiac chest pain, worse with exertion and better at rest. Denies chest pain at this time. History of CAD with stents. EKG showed nonspecific ST changes. Troponin negative 3. - Restart home aspirin - Atorvastatin 40 mg daily at bedtime - As above restart carvedilol and lisinopril (better blood pressure control will certainly help angina) - Sublingual nitroglycerin PRN Methamphetamine abuse. - Possibly contributing to CHF exacerbation - Drug screen positive for amphetamines - warehouse worker consult Hypertension - Patient presented significantly hypertensive with BP 167/120. Improved to 130s /90s with Lasix. - Medications as above COPD, chronic. - Albuterol nebs q6h PRN Hyperlipidemia - Lipid panel in AM - Atorvastatin 40 mg qhs Diabetes mellitus type II, diet-controlled. - Blood glucose 104 on admission. HA1c was 5.7 on 02/24/14. - Diabetic heart healthy diet Nicotine dependence - Nicotine patch ordered - Bowel regimen as needed - Antiemetic as needed Patient is admitted under inpatient status with expected length of stay greater than 2 midnights due to severity of presenting symptoms, risk of adverse event, and complexity of treatment plan. VTE Mechanical Devices: Intermittant Pneumatic CD Chari Aguilera MD Feb 12, 2017 14:09
[2017-02-13 01:22] VITALS: BP 124/79; PULSE 72; RESP 18; O2SAT 91
[2017-02-13] MEDS: Heparin 5,000 Unit/mL Inj SUBQ SCH ×2 (01:31→07:41)
[2017-02-13 05:00] VITALS: BP 127/85; PULSE 94; RESP 18; O2SAT 91
--- NOTE | 2017-02-13 05:53 | NUR ---
Oxygen: Pt placed on 1L NC while asleep. Sleeping sats would fluctuate between 86-94%. With the 1L pt is 88-95%. Denied pain through the night. BP 120s/70-80s.
[2017-02-13 07:49] VITALS: PULSE 79; RESP 20; O2SAT 100
[2017-02-13 09:12] VITALS: BP 101/64; PULSE 74; RESP 18; O2SAT 93
--- NOTE | 2017-02-13 09:30 | PCM.DIMED ---
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 They may also want to order a sleep study for you since your oxygen saturations fall as low as 86% while you are sleeping. Also see how soon you can get back to see your previous garnett machine operator. Follow-up with PCP in: 1 week Chari Aguilera MD Feb 13, 2017 09:30
[2017-02-13] MEDS ORDERED: CARV12.52 PO (09:58)
[2017-02-13] MEDS ORDERED: ATOR20TA PO (09:58)
[2017-02-13] MEDS ORDERED: CLOP75TA3 PO (09:58)
[2017-02-13] MEDS ORDERED: NITR0.4T SL (09:58)
[2017-02-13] MEDS ORDERED: FURO40TA4 PO (09:58)
[2017-02-13] MEDS ORDERED: LISI10TA PO (09:58)
--- NOTE | 2017-02-13 10:05 | PCM.DC.MED ---
Discharge Summary Date of Service Feb 13, 2017 Dates of Hospitalization Date of Hospital Admission Feb 11, 2017 at 19:52 Date of Discharge: Feb 13, 2017 Providers: Admitting Physician: Elizabeth Brown DO Primary Care Physician: Jori Vazquez DO Attending Physician: Sebastien Aguilera MD Brief History Patient is a 47-year-old female with a history of CAD with history of STEMI and drug-eluting stent to the RCA in 2013, systolic CHF, COPD, hypertension, and hyperlipidemia who presents with progressive dyspnea over the past 2 months, orthopnea, edema, and chest discomfort. She states her symptoms started 2 months ago as dyspnea on exertion and began to progress to the point that she became dyspneic at rest. She reports a dry cough, lower extremity edema, a 25- 30 pound weight gain over the last 2 months, and a vague aching substernal chest pain radiating to the left axilla. She reports her chest pain occurs with exertion and improves with rest. The pain resolves quickly as soon as she rests. sHe states that her insurance does not cover medications and she has been unable to afford any medications, so she has not been taking any of the medications on her list. She reports methamphetamine use and states that she took some meth orally 3 days ago. In the ED, HR 95, RR 21, BP 154/102, O2 95 on room air. Hgb 11.6, CMP normal, troponin < 0.01, proBNP 2402. Chest x-ray showed cardiomegaly with pulmonary redistribution. EKG showed left axis deviation with nonspecific ST changes in the lateral leads. Hospital Course Acute on Chronic systolic CHF exacerbation. Present on admission. 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 Patient has a history of CAD with STEMI and stents and has been noncompliant with cardiac meds since her hospitalization and catheterization in 2013. Takes meth orally, last used 3 days ago. ProBNP 2402. Chest x-ray showed cardiomegaly and vascular redistribution. Patient appears fluid overloaded. Medical noncompliance due to financial difficulties is likely a large factor. - at cardiac cath in 2013: Left ventricular ejection fraction of 55% with inferior wall akinetic. - Echo today: The left ventricle is severely dilated and left ventricular systolic function is severely reduced with the ejection fraction estimated to be 20-25% with a mild dyssynchronous contraction pattern, consistent with a conduction abnormality, and severe global hypokinesis that is worse in the inferior and posterior segments which is unchanged from the previous study but overall left ventricular function has markedly decreased and size is significantly larger compared to the previous study. - Discussed these results with her and her mom, emphasized the seriousness of these results and told her that if she does not take her medications and follow- up with her physicians her chances of living 5 years are low - Also stressed with her the importance of stopping them at amphetamine use butshe denies recent use (however drug screen is positive) - Patient received Lasix 20 mg IV and will now start her on Lasix 40 mg by mouth daily - Was started on Lisinopril 5 mg daily but systolic blood pressure mostly in the 140s although up to 168/120 evening before last, so increased to 10 mg daily and now SBP 101-127 - Restarted previous carvedilol 12.5 mg twice a day - 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 - Nitroglycerin is not available for low myers at [facility] but social contact worker found an assistance program from the [employer] and will give patient information on this - Discussed patient's echo results and her history with cardiology on the phone , Dr. Mcqueen did not feel further evaluation needed at this time, most important thing is for her to resume medications and stay compliant with this, and stay off meth Stable angina. - Patient reports frequent cardiac chest pain, worse with exertion and better at rest. Denies chest pain at this time. History of CAD with stents. EKG showed nonspecific ST changes. Troponin negative 3. - Restarted home aspirin and plavix - Atorvastatin 40 mg daily at bedtime - As above restarted carvedilol and lisinopril (and better blood pressure control will certainly help angina) - Sublingual nitroglycerin PRN Methamphetamine abuse. - Possibly contributing to CHF exacerbation - Drug screen positive for amphetamines - footwear factory worker consult Hypertension - Patient presented significantly hypertensive with BP 167/120. Improved to 130s /90s with Lasix and most recently SBP 10-127 as above. - Medications as above COPD, chronic. - Albuterol nebs q6h PRN Hyperlipidemia - Atorvastatin 40 mg qhs Diabetes mellitus type II, diet-controlled. - Blood glucose 104 on admission. HA1c was 5.7 on 02/24/14. - Diabetic heart healthy diet Nicotine dependence - Nicotine patch ordered - counselled about quitting and effect on heart disease Exam Vital Signs (Last) Date Time Temp Pulse Resp B/P Pulse Ox O2 Delivery O2 Flow Rate FiO2 02/13/17 09:12 36.8 74 18 101/64 93 Nasal Cannula 1.00 Exam General: Alert and oriented, no acute distress Heart: Regular Lungs: Clear Abdomen: Soft, non-tender Extremities: No pedal edema Test 02/11/17 17:35 02/12/17 00:46 02/12/17 05:35 02/12/17 10:28 Pro-B-Type Natriuretic Peptide 2402pg/mL (0-249) Urine Color Straw (YELLOW) Urine Appearance Clear (CLEAR,HAZY) Urine pH 6.5 (5.0-8.0) Urine Specific [place] 1.005 (1.003-1.035) Urine Protein Negativemg/dL (NEG,TRACE) Urine Glucose (UA) Negativemg/dL (NEGATIVE) Urine Ketones Negativemg/dL (NEGATIVE) Urine Occult Blood Negative (NEGATIVE) Urine Nitrite Negative (NEGATIVE) Urine Bilirubin Negative (NEGATIVE) Urine Urobilinogen Normalmg/dL (NORMAL) Urine Leukocyte Esterase Negative (NEGATIVE) Urine RBC 0-2/hpf (0-2) Urine WBC 0-5/hpf (0-5) Urine Epithelial Cells Occasional/hpf (NONE-MOD) Urine Crystals None seen (NONE SEEN) Urine Bacteria None/hpf (NONE-FEW) Urine Hyaline Casts None/lpf (NONE) Urine Granular Casts None seen (NONE SEEN) Urine Waxy Casts None seen (NONE SEEN) Urine Red Blood Cell Casts None seen (NONE SEEN) Urine White Blood Cell Casts None seen (NONE SEEN) Urine Mucus None seen (None Seen) Urine Trichomonas None seen (NONE SEEN) Urine Yeast None (NONE SEEN) Urinalysis Comment None Urine Culture Reflexed Not indicated Urine Opiates Screen Negative Urine Methadone Screen Negative Urine Barbiturates Screen Negative Urine Amphetamines Screen Positive Urine Benzodiazepines Screen Negative Urine Cocaine Metabolite Screen Negative Urine Cannabinoids Screen Negative White Blood Count 8.4th/mm3 (3.8-10.1) Red Blood Count 4.35mil/mm3 (3.90-5.20) Hemoglobin 11.6g/dL (12.0-15.6) Hematocrit 37.2% (35.0-46.0) Mean Corpuscular Volume 85.5fL (81-100) Mean Corpuscular Hemoglobin 26.7pg (27.0-35.0) Mean Corpuscular Hemoglobin Concent 31.2% (32.0-37.0) Red Cell Distribution Width 16.8% (12.3-15.4) Platelet Count 282bil/L (150-400) Neutrophils (%) (Auto) 67.4% (40-74) Lymphocytes (%) (Auto) 20.0% (14-46) Monocytes (%) (Auto) 5.3% (4-12) Eosinophils (%) (Auto) 6.6% (0-5) Basophils (%) (Auto) 0.6% (0-3) Sodium Level 141mEq/L (134-144) Potassium Level 4.2mEq/L (3.5-5.2) Chloride Level 102mEq/L (97-108) Carbon Dioxide Level 23mmol/L (18-29) Blood Urea Nitrogen 18mg/dL (6-24) Creatinine 0.82mg/dL (0.57-1.00) Estimat Glomerular Filtration Rate 107mL/min (>59) Glucose Level 108mg/dL (60-99) Calcium Level 9.0mg/dL (8.5-10.1) Total Bilirubin 1.3mg/dL (0.0-1.2) Aspartate Amino Transf (AST/SGOT) 35U/L (0-50) Alanine Aminotransferase (ALT/SGPT) 23U/L (0-32) Alkaline Phosphatase 111U/L (25-150) Total Protein 6.2g/dL (6.4-8.4) Albumin 4.0g/dL (3.4-5.0) Triglycerides Level 123mg/dL (0-149) Cholesterol Level 170mg/dL (100-199) LDL Cholesterol, Calculated 110.400mg/dL (0-99) VLDL Cholesterol 24.600mg/dL HDL Cholesterol 35mg/dL (>39) Cholesterol/HDL Ratio 4.86 (0.0-4.4) Troponin T 0.010ug/L (0.0-0.011) Discharge Medications Discharge Medications Aspirin (Aspirin) 81 Mg Tablet 81 MG PO BID (Reported) Atorvastatin (Lipitor) 20 Mg Tablet 40 MG PO HS Prescribed by: SEBASTIEN AGUILERA MD Carvedilol (Carvedilol) 12.5 Mg Tablet 12.5 MG PO BID Prescribed by: SEBASTIEN AGUILERA MD Clopidogrel Bisulfate (Plavix) 75 Mg Tablet 75 MG PO DAILY Prescribed by: SEBASTIEN AGUILERA MD Fluticasone Propionate (Flovent HFA 220 mcg) 1 Puff Inha 2 PUFF INHALATION BID Prescribed by: GNI SIU MD Furosemide (Furosemide) 40 Mg Tablet 40 MG PO DAILY Prescribed by: SEBASTIEN AGUILERA MD Lisinopril (Lisinopril) 10 Mg Tablet 10 MG PO DAILY Prescribed by: SEBASTIEN AGUILERA MD Tiotropium [place] (Spiriva) 1 Puff Inh.cap 1 PUFF INHALATION DAILY Prescribed by: GIN SIU MD As needed Albuterol HFA (Proair HFA) 8.5 Gm Hfa.aer.ad 2 PUFFS INHALATION Q4H PRN PRN For Shortness of Breath (Reported) Nitroglycerin SL (Nitrostat) 0.4 Mg Tab.subl 0.4 MG SL Q5MIN PRN PRN For Chest Pain Prescribed by: SEBASTIEN AGUILERA MD Followup Plan Discharge Diet: Low fat, Low Sodium Discharge Activity: No restrictions, Other (if work duties cause significant shortness of 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 They may also want to order a sleep study for you since your oxygen saturations fall as low as 86% while you are sleeping. 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 Follow-up with PCP in: 1 week Sebastien Aguilera MD Feb 13, 2017 10:05
--- NOTE | 2017-02-13 10:13 | NUR ---
Social Work-discharge: Data:EMR reviewed. Pt is on day 2 of hospitalization for unstable angina per H&P. Pt is medically stable for discharge. Resources have been provided for assistance with medications and pt has been informed to get other medications filled through [facility] order received for PCP establishment. CARLENE spoke with pt who states she used to use [facility] and is agreeable to this again. CARLENE placed a call to [facility], SW explained pt will need to be seen within the week. [facility] states they will need to call the pt at home due to having the RN schedule this. [facility] provided [facility] with pt's phone number. SW updated pt at bedside and provided her with residency clinic information. Pt will need to call [facility] back if she misses their call. Pt updated and agreeable to plan. Assessment:pt who is independent at baseline. Plan: Pt to discharge home today via pOV. [facility] to [facility] at home and arrange PCP appointment within a week. Resources for medication assistance has been provided. All updated and agreeable to plan. MESERET Caldwell
[2017-02-13 10:16] VITALS: PULSE 76
--- NOTE | 2017-02-13 11:15 | NUR ---
Discharge Patient discharged home with family. All discharge instructions given to patient along with scripts and follow-up appointments to be made by patient. Verbalized all understanding and denied any further questions. IV D/C'd, intact, dressing applied. Walked down to lobby with RN. No s/s of distress on discharge.
== END 2017-02-13 11:04 | disposition home or self-care (01) | DRG 293 ==
LOC: SED 16:54 → OBSVTOIN 19:52 → MPC 19:52
PROVIDERS: ADMIT Internal Medicine; ATTEND Internal Medicine
DX: I50.23 Acute on chronic systolic (congestive) heart failure (principal); I25.118 Atherosclerotic heart disease of native coronary artery with other forms of angina pectoris; J44.9 Chronic obstructive pulmonary disease, unspecified; E78.5 Hyperlipidemia, unspecified; F15.10 Other stimulant abuse, uncomplicated; I10 Essential (primary) hypertension; F17.210 Nicotine dependence, cigarettes, uncomplicated; Z91.14 Patient's other noncompliance with medication regimen; Z95.5 Presence of coronary angioplasty implant and graft; I25.2 Old myocardial infarction; Z79.82 Long term (current) use of aspirin; Z79.51 Long term (current) use of inhaled steroids